=== PATIENT | female | born 1960 | race Caucasian/White ===

== ENCOUNTER 2019-01-13 08:57 | Day surgery (SDC) | payer OTHER ==
[2019-01-13] MEDS ORDERED: SOD CHLORIDE 0.9% 1,000 ML IV (10:30)
[2019-01-13] MEDS ORDERED: MIDAZOLAM 1 MG/ML 2 ML INJ (12:54)
[2019-01-13] MEDS ORDERED: FENTAnyl 50 MCG/ML VIAL (12:54)
[2019-01-13] MEDS ORDERED: CEFAZOLIN 1 GM INJ (12:54)
[2019-01-13] MEDS ORDERED: ONDANSETRON 4 MG INJ IV (13:00)
[2019-01-13] MEDS ORDERED: ALBUTEROL 0.083% (NEB) 2.5 MG/3 ML AMP HHN (13:00)
[2019-01-13] MEDS ORDERED: KETOROLAC 15 MG INJ IV (13:00)
[2019-01-13] MEDS ORDERED: hydrALAzine 20 MG INJ IV (13:00)
[2019-01-13] MEDS ORDERED: LABETALOL HCL 20MG INJ IV (13:00)
[2019-01-13] MEDS ORDERED: EPHEDrine 25 MG/5 ML SYG IV (13:00)
[2019-01-13] MEDS ORDERED: FENTAnyl 50 MCG/ML VIAL IV ×2 (13:00)
[2019-01-13] MEDS ORDERED: DIPHENHYDRAMINE 50 MG INJ IV (13:00)
[2019-01-13] MEDS ORDERED: OXYCODONE/ACETAMINOPHEN (5/325) TAB PO (13:00)
[2019-01-13] MEDS ORDERED: MEPERIDINE 25 MG INJ IV (13:00)
[2019-01-13] MEDS ORDERED: HYDROmorphONE 1 MG/5 ML IV SYRINGE IV ×3 (13:00)
[2019-01-13] MEDS: LIDOCAINE 2% (MDV) 20 ML INJ (13:03)
[2019-01-13] MEDS: BUPIVACAINE 0.5% (SDV) 30 ML INJ (13:03)
[2019-01-13] MEDS ORDERED: POLYMYXIN/BACITRACIN 1L IRRIG (13:03)
[2019-01-13] MEDS ORDERED: PROPOFOL 60 ML (13:15)
[2019-01-13] MEDS ORDERED: LIDOCAINE 2% (SDV) 5 ML INJ (13:15)
[2019-01-13] MEDS: OXYCODONE/ACETAMINOPHEN (5/325) TAB PO (13:53)
== END 2019-01-13 15:25 | disposition home or self-care (01) ==
LOC: SDS 08:57
DX: L02.612 Cutaneous abscess of left foot (principal); L03.032 Cellulitis of left toe; E11.42 Type 2 diabetes mellitus with diabetic polyneuropathy; E11.51 Type 2 diabetes mellitus with diabetic peripheral angiopathy without gangrene; E11.621 Type 2 diabetes mellitus with foot ulcer; L97.529 Non-pressure chronic ulcer of other part of left foot with unspecified severity; Z91.14 Patient's other noncompliance with medication regimen
CPT/HCPCS: 10060; 82962; 87070; 87075; 88304